=== PATIENT | male | born 1965 | race Caucasian/White ===

== ENCOUNTER 2016-07-24 19:30 | Emergency (ER) | payer MEDICAID ==
[~2016-07-24 19:30] MED LIST: ELA25 PO; FLONS; PRI20 PO; SUCRALFATE1 GM PO; ZYR5 PO
[2016-07-24 22:19] VITALS: BP 104/57
== END 2016-07-24 22:19 | disposition home or self-care (01) ==
LOC: ED 19:30
DX: J02.9 Acute pharyngitis, unspecified (principal)
CPT/HCPCS: 86308; J1885